=== PATIENT | male | born 1985 | race African-American/Black ===

== ENCOUNTER → 2023-12-31 10:52 | Outpatient (REF) | payer OTHER, SELFPAY ==
[2024-01-01 15:54] LABS: Mumps Virus IgG Positive; Rubeola (Measles) IgG Positive; Varicella Zoster IgG (VZV) Negative
[2024-01-01 20:21] LABS: Rubella Positive
== END ==
LOC: OHS 10:52
PROVIDERS: ATTENDING PHYSICIAN Nurse Practitioner Family
DX: Z23 Encounter for immunization (principal)
CPT/HCPCS: 36415; 86735; 86762; 86765; 86787